=== PATIENT | female | born 1990 | race African-American/Black ===

== ENCOUNTER 2017-10-11 14:18 | Emergency (ER) | payer SELFPAY ==
[~2017-10-11] VITALS: Ht 160 cm; Wt 76.0 kg
[2017-10-11 14:23] VITALS: BP 114/66
[2017-10-11] MEDS ORDERED: SODIUM CHLORIDE FLUSH 10ML SYR IVF ONE (14:30)
[2017-10-11] MEDS ORDERED: PLEASE ENTER ALLERGIES MC SCH (15:00)
[2017-10-11] MEDS ORDERED: OMNIPAQUE 350 MG/ML, 75ML BOTTLE ONE (15:50)
== END 2017-10-11 16:22 | disposition home or self-care (01) ==
LOC: ED 16:16
DX: H00.034 Abscess of left upper eyelid (principal)
CPT/HCPCS: 70487; 99284; Q9967

== ENCOUNTER 2018-01-18 09:09 | Emergency (ER) | payer MEDICAID ==
[~2018-01-18] VITALS: Ht 160 cm; Wt 80.2 kg
[2018-01-18 09:11] VITALS: BP 127/68
[2018-01-18] MEDS ORDERED: ALBUTEROL/IPRATROPIUM 2.5MG/0.5MG, 3 ML ONE (09:38)
== END 2018-01-18 10:52 | disposition home or self-care (01) ==
LOC: ED 09:21
DX: J45.21 Mild intermittent asthma with (acute) exacerbation (principal)
CPT/HCPCS: 93005; 94640; 99283; J7512

== ENCOUNTER 2020-09-22 23:57 | Emergency (ER) | payer MEDICAID ==
[~2020-09-22] VITALS: Ht 160 cm; Wt 83.9 kg
[2020-09-22 23:59] VITALS: BP 118/79
[2020-09-23] MEDS ORDERED: methylPREDNISolone SOD SUCC 125 MG/2 ML ONE (00:20)
[2020-09-23] MEDS ORDERED: ALBUTEROL/IPRATROPIUM 2.5MG/0.5MG, 3 ML ONE (00:20)
[2020-09-23] MEDS ORDERED: SODIUM CHLORIDE FLUSH 10ML SYR IVF ONE (00:30)
[2020-09-23] MEDS ORDERED: ALBUTEROL/IPRATROPIUM 2.5MG/0.5MG, 3 ML NPPB PRN (00:30)
[2020-09-23] MEDS ORDERED: ALBUTEROL/IPRATROPIUM 2.5MG/0.5MG, 3 ML NPPB SCH (00:30)
[2020-09-23] MEDS ORDERED: methylPREDNISolone SOD SUCC 125 MG/2 ML IV ONE (00:30)
[2020-09-23] MEDS ORDERED: ONDANSETRON 2MG/ML, 2ML ONE (00:36)
--- NOTE | 2020-09-23 00:54 | NUR ---
PT HERE FOR ASTHMA EXACERBATION. PT BECAME WHEEZY AT HOME, STATES SHE HAS GONE THROUGH 2-3 INHALES OVER THE LAST 6 WEEKS. PT RAN OUT OF HER INHALER TODAY. PT GIVEN DUONEB TX AND IV SOLU-MEDROL. PT ALSO NAUSEOUS AND VOMITING, GIVEN IV ZOFRAN PER VERBAL ORDERS FROM DR. ORTIZ. PT REPORTS FEELING BETTER AFTER BREATHING TX AND IS ABLE TO TAKE BIGGER BREATH. BOYFRIEND AT BEDSIDE
[2020-09-23] MEDS ORDERED: ONDANSETRON 2MG/ML, 2ML IVPush ONE (01:00)
== END 2020-09-23 01:42 | disposition home or self-care (01) ==
LOC: ED 23:58
DX: J45.41 Moderate persistent asthma with (acute) exacerbation (principal)
CPT/HCPCS: 71045; 93005; 94640; 96374; 96375; 99284; J2405; J2930